=== PATIENT | female | born 1945 | race Caucasian/White ===

== ENCOUNTER 2016-10-05 11:54 | Emergency (ER) ==
[2016-10-05 12:00] VITALS: BP 109/79; TEMP 97.5; BMI 34.7
--- NOTE | 2016-10-05 12:35 | ED.PDOC ---
General ED Provider: Dr. ILIANA ROCHA Chief Complaint: Weakness Stated Complaint: Weakness, hands give way - drops things, sleeping more Time Seen by Physician: 12:30 Mode of Arrival: Walk-In Information Source: Patient Exam Limitations: No limitations Primary Care Provider: CATHY SCHUSTER Nursing and Triage Documentation Reviewed and Agree: Yes Review of Systems - Review Of Systems Constitutional: Reports: Malaise, Weakness Eyes: Reports: No symptoms Ears, Nose, Mouth, Throat: Reports: No symptoms Respiratory: Reports: No symptoms GI: Reports: No symptoms : Reports: Frequency (Says may be from water pill) Musculoskeletal: Reports: No symptoms Skin: Reports: No symptoms Neurological: Reports: No symptoms, Anxiety All Other Systems: Reviewed and Negative Past Medical History - Past Medical History Previously Healthy: No (Multiple problems - all adressed) Endocrine: Reports: None Cardiovascular: Reports: Hypertension Respiratory: Reports: None Hematological: Reports: None Gastrointestinal: Reports: GERD Genitourinary: Reports: Kidney stones Neuro/Psych: Reports: CVA, Depression Musculoskeletal: Reports: None Cancer: Reports: None Last Menstrual Period: n/a - Surgical History General Surgical History: Reports: Hernia Repair - Family History Family History: Reports: None - Social History Smoking Status: Never smoker Hx Substance Use: No Alcohol Screening: None Physical Exam - Physical Exam Appearance: Well-appearing Respiratory: Airway patent, Breath sounds clear, Breath sounds equal Cardiovascular: RRR, Pulses normal GI/: Soft, Nontender, Bowel sounds normal (Colostomy bag present LLQ) Musculoskeletal: Normal strength, ROM intact Skin: Warm, Dry, Normal color Neurological: Sensation intact, Motor intact Psychiatric: Affect appropriate, Mood appropriate Critical Care Note - Critical Care Note Total Time (mins): 20 Course - Course Hematology/Chemistry: 10/05/16 12:44 10/05/16 12:44 Orders, Labs, Meds: Lab Review 10/05/16 10/05/16 12:44 13:32 WBC 6.87 RBC 4.70 Hgb 14.7 Hct 43.2 MCV 91.9 MCH 31.3 H MCHC 34.0 RDW Coeff of Yogesh 12.9 Plt Count 242 Immature Gran % (Auto) 0.1 Neut % (Auto) 73.8 Lymph % (Auto) 17.5 [place] % (Auto) 6.1 Eos % (Auto) 1.6 Baso % (Auto) 0.9 Immature Gran # (Auto) 0.0 Neut # 5.1 Lymph # 1.2 [place] # 0.4 Eos # 0.1 Baso # 0.1 Sodium 138 Potassium 3.8 Chloride 97 L Carbon Dioxide 29 Anion Gap 15.8 BUN 58 H Creatinine 1.57 H Estimated GFR (MDRD) 32.00 BUN/Creatinine Ratio 36.94 Glucose 120 H Calcium 10.1 Total Bilirubin 0.66 AST 21 ALT 15 Alkaline Phosphatase 110 Total Protein 7.8 Albumin 4.2 Globulin 3.6 Albumin/Globulin Ratio 1.17 Urine Color Yellow Urine Clarity Clear Urine pH 5.0 Ur Specific [place] 1.020 Urine Protein Negative Urine Glucose (UA) Negative Urine Ketones Negative Urine Blood Negative Urine Nitrite Negative Urine Bilirubin Negative Urine Urobilinogen 1.0 Ur Leukocyte Esterase 1+ Urine Microscopic WBC 5-10 Ur Squamous Epith Cells 2-5 Urine Bacteria 1+ Hyaline Casts 0-2 Orders Category Date Time Status CBC W/ AUTO DIFF Stat LAB 10/05/16 12:44 Completed COMPREHENSIVE METABOLIC PANEL Stat LAB 10/05/16 12:44 Completed URINALYSIS C & S IF INDICATED Stat LAB 10/05/16 13:32 Completed URINE CULTURE Stat LAB 10/05/16 13:20 Received Vital Signs: Temp Pulse Resp BP Pulse Ox 10/05/16 11:56 97.5 F L 67 16 109/79 94 L Departure - Departure Time of Disposition: 14:31 Disposition: HOME SELF-CARE Discharge Problem: Urinary tract infection Instructions: Urinary Tract Infection in Women (ED) Condition: Stable Pt referred to PMD for follow-up: Yes (Call for appointment) Additional Instructions: Take antibiotic as prescribed; follow up with primary care. Call for appointment next week. Return to ER if worsening meanwhile. Prescriptions: Nitrofurantoin Monohyd/M-Cryst [Macrobid] 100 mg PO BID #20 capsule Allergies/Adverse Reactions: Allergies No Known Allergies Allergy (Verified 06/14/15 04:48) Home Medications: Ambulatory Orders Clonidine HCl 0.3 mg PO BID 06/14/15 Gabapentin 300 mg PO TID 06/14/15 Metoprolol Tartrate [Lopressor] 50 mg PO DAILY 06/14/15 Sertraline HCl 25 mg PO DAILY 06/14/15 Bumetanide 1 mg PO DAILY 10/05/16 Cetirizine HCl [Zyrtec] 10 mg PO DAILY 10/05/16 Duloxetine HCl [Cymbalta] 20 mg PO DAILY 10/05/16 Losartan/Hydrochlorothiazide [Losartan-Hctz 100-25 mg Tab] 1 each PO DAILY 10/05 Nitrofurantoin Monohyd/M-Cryst [Macrobid] 100 mg PO BID #20 capsule 10/05/16 Potassium Chloride [K-Dur] 20 meq PO DAILY 10/05/16 Pramipexole Di-HCl [Pramipexole Dihydrochloride] 0.5 mg PO BID 10/05/16 Disposition Discussed With: Patient
[2016-10-05 12:54] LABS: BASOPHILS # (AUTO) 0.1 K/uL (0-0.2); BASOPHILS % (AUTO) 0.9 % (0.0-3.0); EOSINOPHILS # (AUTO) 0.1 K/ul (0.0-0.7); EOSINOPHILS % (AUTO) 1.6 % (0.0-7.0); HEMATOCRIT 43.2 % (37.0-47.0); HEMOGLOBIN 14.7 g/dl (12.0-16.0); IMMATURE GRANULOCYTE % (AUTO) 0.1 % (0.0-5.0); LYMPHOCYTES # (AUTO) 1.2 K/uL (0.60-3.4); LYMPHOCYTES % (AUTO) 17.5 (10.0-50.0); MEAN CORPUSCULAR HEMOGLOBIN 31.3 pg (27.0-31.0); MEAN CORPUSCULAR VOLUME 91.9 fl (81.0-99.0); MONOCYTES # (AUTO) 0.4 K/uL (0.4-2.0); MONOCYTES % (AUTO) 6.1 (0-10); NEUTROPHILS # (AUTO) 5.1 K/ul (2.0-6.9); NEUTROPHILS % (AUTO) 73.8; PLATELET COUNT 242 10^3/uL (140-440); WHITE BLOOD COUNT 6.87 K/ul (4.6-10.2)
[2016-10-05 13:05] LABS: ALBUMIN 4.2 g/dL (3.4-5.0); ALBUMIN/GLOBULIN RATIO 1.17; ANION GAP 15.8; BILIRUBIN,TOTAL 0.66 mg/dL (0.00-1.20); BUN/CREATININE RATIO 36.94; CALCIUM 10.1 mg/dL (8.2-10.2); CREATININE 1.57 mg/dL (0.60-1.30); POTASSIUM 3.8 mmol/L (3.5-5.10); TOTAL PROTEIN 7.8 g/dL (5.8-8.1)
[2016-10-05 13:37] LABS: ADD URINE MICROSCOPIC YES; BILIRUBIN,URINE Negative (NEGATIVE); KETONES,URINE Negative (NEGATIVE); LEUKOCYTE ESTERASE ,URINE 1+ (NEGATIVE); NITRITE,URINE Negative (NEGATIVE); PROTEIN,URINE Negative (NEGATIVE); URINE, BLOOD Negative (NEGATIVE)
[2016-10-05 13:50] LABS: BACTERIA,URINE 1+ (NOT PRESENT)
== END 2016-10-05 14:47 | disposition home or self-care (01) ==
LOC: ED 11:54
DX: N39.0 Urinary tract infection, site not specified (principal); I10 Essential (primary) hypertension; Z79.899 Other long term (current) drug therapy; Z86.73 Personal history of transient ischemic attack (TIA), and cerebral infarction without residual deficits; Z87.442 Personal history of urinary calculi; Z93.3 Colostomy status
CPT/HCPCS: 36415; 80053; 81001; 85025; 87086; 99283

== ENCOUNTER 2018-01-16 13:45 | Outpatient (CLI) | END 2018-01-16 13:46 | disposition left against medical advice (07) | LOC: AMBL 13:45 | PROVIDERS: ATTEND Internal Medicine | DX: M25.561 Pain in right knee (principal); M25.571 Pain in right ankle and joints of right foot; W19.XXXA Unspecified fall, initial encounter ==

== ENCOUNTER 2018-01-20 18:36 | Outpatient (CLI) | payer OTHER | END 2018-01-20 18:56 | disposition short-term general hospital (02) | LOC: AMBL 18:36 | PROVIDERS: ATTEND Internal Medicine | DX: R10.9 Unspecified abdominal pain (principal); R14.0 Abdominal distension (gaseous); Z93.3 Colostomy status; S49.91XA Unspecified injury of right shoulder and upper arm, initial encounter; S82.91XD Unspecified fracture of right lower leg, subsequent encounter for closed fracture with routine healing; W19.XXXD Unspecified fall, subsequent encounter ==